=== PATIENT | female | born 1990 | race Hispanic/Latino ===

== ENCOUNTER 2019-03-24 12:59 | Outpatient (CLI) | payer OTHER ==
--- NOTE | 2019-03-24 15:40 | Mammography Report ---
BONE DEXA:03/24/19 CLINICAL: Postmenopausal. No comparison. TECHNIQUE: Two site bone DEXA performed on an Hologic scanner. FINDINGS: L1 BMD is 0.865g/cm squared with T score of -1.1 and Z score of -1.1. L2 BMD is 0.805g/cm squared with T score of -2.0 and Z score of -2.0. L3 BMD is 0.771g/cm squared with T score of -2.8 and Z score of -2.8. L4 BMD is 0.688g/cm squared with T score of -3.4 and Z score of -3.4. The average BMD of the spine L1-L4 is 0.776g/cm squared with T-score of -2.5 and Z-score of -2.4. The average BMD of the right hip is 0.735g/cm squared with a T-score of -1.7 and a Z-score of -1.7. IMPRESSION: 1. WHO classification: Osteoporosis with high fracture risk based on lumbar spine measurements. 2. WHO classification: Osteopenia with increased fracture risk based on left hip measurements. RECOMMENDATION: Clinical correlation and routine screening. DEFINITIONS: BMD = Bone Mineral Density T-score = BMD related to mean peak bone mass of young adult (mean expressed in Standard Deviation) Z-score = Age matched BMD expressed in SD World Health Organization (WHO) Diagnostic Criteria Normal T-score > -1 SD Osteopenia T-score between -1 and -2.4 SD Osteoporosis T-score -2.5 SD or below NOTE: BMD is not the only risk factor for fracture. One should also consider factors such as the patient's age, risk of falling, previous osteoporotic fracture, family history of osteoporotic fractures, current smoker, and low body weight. Z-scores are not calculated if >80 years of age.
== END 2019-03-24 13:00 | disposition home or self-care (01) ==
LOC: SPVWC 12:59
PROVIDERS: ATTEND Obstetrics & Gynecology
DX: Z13.820 Encounter for screening for osteoporosis (principal); N94.89 Other specified conditions associated with female genital organs and menstrual cycle; Z78.0 Asymptomatic menopausal state
CPT/HCPCS: 77080